=== PATIENT | female | born 1965 | race Caucasian/White ===

== ENCOUNTER 2016-05-09 15:21 | Emergency (ER) ==
[2016-05-09 15:34] VITALS: BP 144/90; TEMP 98.5; BMI 35.8
--- NOTE | 2016-05-09 15:58 | ED.PDOC ---
General ED Provider: Dr. SITA BOYLE JR Chief Complaint: Shoulder Pain/Injury Stated Complaint: PAIN RIGHT SHOULDER AND UPPER ARM MOVING TO BACK OF NECK , CENTER OF BACK AND HEAD. INTERMITTENT ABDOMINAL PAIN AFTER EATIG OR DRINKING.[ End]90 min 98.5 95 16 144/90 7/10 IBUPROFEN AT 11 FOR HEADACHE Time Seen by Physician: 15:52 Mode of Arrival: Walk-In Information Source: Patient Exam Limitations: No limitations Primary Care Provider: NOAH DE Nursing and Triage Documentation Reviewed and Agree: No Review of Systems - Review Of Systems Constitutional: Reports: Malaise Eyes: Reports: No symptoms Ears, Nose, Mouth, Throat: Reports: No symptoms Respiratory: Reports: No symptoms Cardiac: Reports: Chest pain (right sided ateral into neck) GI: Reports: No symptoms (tender on exam) : Reports: No symptoms Musculoskeletal: Reports: Joint pain (righ shoulder) Skin: Reports: No symptoms Neurological: Reports: No symptoms, Other Endocrine: Reports: No symptoms Hematologic/Lymphatic: Reports: No symptoms All Other Systems: Other Past Medical History - Past Medical History Endocrine: Reports: Hypothyroid Cardiovascular: Reports: Hypertension Respiratory: Reports: Other Hematological: Reports: None Gastrointestinal: Reports: GERD Genitourinary: Reports: None Neuro/Psych: Reports: Depression Musculoskeletal: Reports: None Cancer: Reports: Breast Last Menstrual Period: NA - Surgical History General Surgical History: Reports: Hysterectomy, Other (BREAST CANCER LEFT WITH BREAST LUMPECTOMY) - Family History Family History: Reports: Unknown - Social History Smoking Status: Never smoker Hx Substance Use: No Alcohol Screening: Occasionally Physical Exam - Physical Exam Appearance: Well-appearing Pain Distress: Moderate Eyes: JT, EOMI, Conjunctiva clear ENT: Ears normal, Nose normal, Oropharynx normal Neck: Supple Respiratory: Airway patent Cardiovascular: RRR, Pulses normal, No rub, No murmur GI/: Soft, Tender (under right costal margin) Musculoskeletal: Normal strength, ROM intact, No edema, No calf tenderness Skin: Warm, Dry, Normal color Neurological: Sensation intact, Motor intact, Reflexes intact, Cranial nerves intact, Alert, Oriented Psychiatric: Affect appropriate, Mood appropriate Interpretation - Radiology Interpretation Radiology Interpretation By: Radiologist Radiology Results: Negative Exam Interpreted: CXR Radiology Interpretation By: Radiologist Radiology Results: No acute changes Exam Interpreted: Other (ultrasound thickened gall ladder no stone s no obstruction,fatty liver) - EKG Interpretation Time of EKG #1: 16:20 Rate: Normal Rhythm: Sinus [place]: Left (lvh prolonged QT non acute note serum potassium) Critical Care Note - Critical Care Note Total Time (mins): 0 Course - Course Hematology/Chemistry: 05/09/16 16:00 05/09/16 16:00 Orders, Labs, Meds: Lab Review 05/09/16 16:00 WBC 11.14 H RBC 4.25 Hgb 12.4 Hct 37.4 MCV 88.0 MCH 29.2 MCHC 33.2 RDW Coeff of Sivan 13.6 Plt Count 358 Immature Gran % (Auto) 0.4 Neut % (Auto) 65.0 Lymph % (Auto) 25.3 [place] % (Auto) 5.8 Eos % (Auto) 2.7 Baso % (Auto) 0.8 Immature Gran # (Auto) 0.0 Neut # 7.2 H Lymph # 2.8 [place] # 0.7 Eos # 0.3 Baso # 0.1 D-Dimer 0.22 Sodium 141 Potassium 3.0 L Chloride 104 Carbon Dioxide 26 Anion Gap 14.0 BUN 16 Creatinine 0.68 Estimated GFR (MDRD) 92.00 BUN/Creatinine Ratio 23.52 Glucose 91 Calcium 9.4 Total Bilirubin 0.17 AST 57 H ALT 57 Alkaline Phosphatase 151 H Total Creatine Kinase 105 Troponin I < 0.0100 Total Protein 7.2 Albumin 3.4 Globulin 3.8 Albumin/Globulin Ratio 0.89 Amylase 60 Lipase 41 Orders Category Date Time Status EKG-(ED ONLY) Stat CARDIO 05/09/16 16:01 Completed NPO REMINDER: IMAGING ONCE CARE 05/09/16 15:57 Active AMYLASE Stat LAB 05/09/16 16:00 Completed CBC W/ AUTO DIFF Stat LAB 05/09/16 16:00 Completed COMPREHENSIVE METABOLIC PANEL Stat LAB 05/09/16 16:00 Completed CREATINE KINASE Stat LAB 05/09/16 16:00 Completed D-DIMER Stat LAB 05/09/16 16:00 Completed LIPASE Stat LAB 05/09/16 16:00 Completed TROPONIN I Stat LAB 05/09/16 16:00 Completed URINALYSIS C & S IF INDICATED Stat LAB 05/09/16 15:52 Uncollected CHEST, 2 VIEWS PA & LAT Stat RADS 05/09/16 16:02 Completed U/S ABDOMEN, RT. UPPER QUAD Stat RADS 05/09/16 15:56 Completed Vital Signs: Temp Pulse Resp BP Pulse Ox 05/09/16 15:28 98.5 F 95 H 16 144/90 H 96 Departure - Departure Time of Disposition: 16:56 Disposition: HOME SELF-CARE Discharge Problem: Abdominal pain, Shoulder pain, right, Hypokalemia Instructions: Acute Abdominal Pain (ED), Hypokalemia (ED) Condition: Good Pt referred to PMD for follow-up: Yes Additional Instructions: potassium twice a day for three days recheck potassium one week follow up PMD one week consider HIDA scan if pain not resolved [place] as needed for pain may follow up with [facility] Prescriptions: Hydrocodone Bit/Acetaminophen [[place] 5-325] 1 - 2 tab PO Q6HR PRN #12 tablet PRN Reason: pain Potassium Chloride [K-Dur] 20 meq PO BID #30 tab Allergies/Adverse Reactions: Allergies Sulfa (Sulfonamide Antibiotics) Adverse Reaction (Verified 05/09/16 15:27) Home Medications: Ambulatory Orders Amlodipine Besylate 10 mg PO DAILY 05/09/16 Calcium Carbonate/Vitamin D3 [Calcium 500 + Vit D 200 Tablet] 1 each PO DAILY Hydrocodone Bit/Acetaminophen [[place] 5-325] 1 - 2 tab PO Q6HR PRN #12 tablet Levocetirizine Dihydrochloride [Xyzal] 5 mg PO DAILY 05/09/16 Levothyroxine Sodium [Levo-T] 112 mcg PO DAILY 05/09/16 Losartan Potassium [Cozaar] 50 mg PO DAILY 05/09/16 Montelukast Sodium 10 mg PO DAILY 05/09/16 Multivitamin 1 cap PO DAILY 05/09/16 Omeprazole Magnesium 20 mg PO DAILY 05/09/16 Potassium Chloride [K-Dur] 20 meq PO BID #30 tab 05/09/16 Tamoxifen Citrate 20 mg PO DAILY 05/09/16 Venlafaxine HCl 75 mg PO BID 05/09/16
[2016-05-09 16:05] LABS: BASOPHILS # (AUTO) 0.1 K/uL (0-0.2); BASOPHILS % (AUTO) 0.8 % (0.0-3.0); EOSINOPHILS # (AUTO) 0.3 K/ul (0.0-0.7); EOSINOPHILS % (AUTO) 2.7 % (0.0-7.0); HEMATOCRIT 37.4 % (37.0-47.0); HEMOGLOBIN 12.4 g/dl (12.0-16.0); IMMATURE GRANULOCYTE % (AUTO) 0.4 % (0.0-5.0); LYMPHOCYTES # (AUTO) 2.8 K/uL (0.60-3.4); LYMPHOCYTES % (AUTO) 25.3 (10.0-50.0); MEAN CORPUSCULAR HEMOGLOBIN 29.2 pg (27.0-31.0); MEAN CORPUSCULAR HGB CONC 33.2 (31.8-35.4); MONOCYTES # (AUTO) 0.7 K/uL (0.4-2.0); MONOCYTES % (AUTO) 5.8 (0-10); NEUTROPHILS # (AUTO) 7.2 K/ul (2.0-6.9); PLATELET COUNT 358 10^3/uL (140-440); RED BLOOD COUNT 4.25 10^6/ul (4.20-5.40); WHITE BLOOD COUNT 11.14 K/ul (4.6-10.2)
--- NOTE | 2016-05-09 16:27 | DI ---
EXAM: Chest two view, frontal and lateral views. HISTORY: Right-sided chest pain. COMPARISON: None available. FINDINGS: The heart size is normal. There is no pulmonary vascular congestion. The lungs are florentin r. No pleural effusion or pneumothorax is seen. No acute osseous abnormality identified. Clips se en in the left axilla. IMPRESSION: No acute cardiopulmonary process.
[2016-05-09 16:39] LABS: ALANINE AMINOTRANSFERASE 57 U/L (12-78); ALBUMIN 3.4 g/dL (3.4-5.0); ALBUMIN/GLOBULIN RATIO 0.89; ALKALINE PHOSPHATASE 151 U/L (42-98); AMYLASE 60 U/L (25-115); ASPARTATE AMINO TRANSFERASE 57 U/L (15-37); BILIRUBIN,TOTAL 0.17 mg/dL (0.00-1.20); BLOOD UREA NITROGEN 16 mg/dL (7-18); BUN/CREATININE RATIO 23.52; CALCIUM 9.4 mg/dL (8.2-10.2); CARBON DIOXIDE 26 mmol/L (21-32); CHLORIDE 104 mmol/L (98-107); CREATININE 0.68 mg/dL (0.60-1.30); GLUCOSE 91 mg/dL (70-110); LIPASE 41 U/L (8-78); SODIUM 141 mmol/L (136-145); TOTAL PROTEIN 7.2 g/dL (6.4-8.2)
--- NOTE | 2016-05-09 16:52 | US ---
EXAM: ULTRASOUND ABDOMEN LIMITED HISTORY: Right upper quadrant tenderness after eating FINDINGS: Ultrasound abdomen, limited. Liver size was measured at about 15 cm, within normal limit s. Increased sound attenuation by the liver parenchyma may represent steatosis. No focal hepatic le serafin or evidence of intrahepatic biliary dilatation was identified. The portal vein is patent and h epatopedal. No gallstones or gallbladder sludge identified. The gallbladder is relatively contracted. The gall bladder wall thickness was measured at 0.42 cm, slightly thickened although in part may be related t o the nondistended state of the organ. The common bile duct diameter was normal at 0.47 cm. No asc ites. Visualized pancreas within normal limits. IMPRESSION: 1. Probable fatty liver. 2. Mild thickening of the gallbladder wall which in part may be related to non distension of the or porter. No gallstones or gallbladder sludge identified. The common bile duct has normal caliber.
[2016-05-09 16:54] LABS: CREATINE KINASE 105 U/L
== END 2016-05-09 17:22 | disposition home or self-care (01) ==
LOC: EDBD → MERGE 15:21 → ED 15:21
DX: R10.9 Unspecified abdominal pain (principal); M25.511 Pain in right shoulder; E87.6 Hypokalemia; R07.89 Other chest pain; I10 Essential (primary) hypertension; Z79.899 Other long term (current) drug therapy
CPT/HCPCS: 36415; 80053; 82150; 82550; 83690; 84484; 85025; 85379; 93005; 93010; 99283

== ENCOUNTER 2016-05-16 07:46 | Outpatient (CLI) ==
--- NOTE | 2016-05-16 11:16 | NM ---
EXAM: Hepatobiliary imaging HISTORY: Right upper quadrant tenderness COMPARISON: Limited abdominal ultrasound on 05/09/2016 showed mild thickening of gallbladder wall. TECHNIQUE: Patient was injected 5 mCi of technetium 99m Choletec which infiltrated into subcutaneous tissue. A repeat dose of 5 mCi of technetium 99m Choletec was injected intravenously. Multiple an terior scintigraphic images of the right upper quadrant the region of the abdomen were obtained up t o 1 hour interval. The patient was infused 2 mcg of cholecystokinin intravenously and gallbladder e jection fraction was calculated. FINDINGS: There is normal visualization of liver, gallbladder, bile duct and small bowel loops. Gal lbladder ejection fraction is 72%. IMPRESSION: Normal study
== END 2016-05-16 07:47 | disposition home or self-care (01) ==
LOC: EDBD → RAD 07:46 → MERGE 07:46 → RAD 07:47
PROVIDERS: ATTEND Family Medicine
DX: K82.8 Other specified diseases of gallbladder (principal); K21.9 Gastro-esophageal reflux disease without esophagitis